=== PATIENT | female | born 1970 | race Caucasian/White ===

== ENCOUNTER 2016-09-18 06:34 | Emergency (ER) | END 2016-09-18 11:20 | disposition home or self-care (01) ==

== ENCOUNTER 2018-01-21 15:44 | Outpatient (CLI) | payer OTHER | END 2018-01-21 15:45 | disposition short-term general hospital (02) | LOC: EMS 15:44 | PROVIDERS: ATTEND Surgery | DX: R10.9 Unspecified abdominal pain (principal); R11.10 Vomiting, unspecified | CPT/HCPCS: A0425; A0427 ==

== ENCOUNTER 2018-01-29 18:23 | Outpatient (CLI) | payer OTHER | END 2018-01-29 18:24 | disposition critical access hospital (66) | LOC: EMS 18:23 | PROVIDERS: ATTEND Surgery | DX: M54.2 Cervicalgia (principal); M79.644 Pain in right finger(s); V43.92XA Unspecified car occupant injured in collision with other type car in traffic accident, initial encounter; Y92.414 Local residential or business street as the place of occurrence of the external cause | CPT/HCPCS: A0425; A0429 ==

== ENCOUNTER 2018-01-29 18:37 | Emergency (ER) | payer OTHER ==
[2018-01-29 18:47] VITALS: BP 153/97
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
== END 2018-01-29 19:03 | disposition home or self-care (01) ==
LOC: EDUNIT# → ED 18:37
DX: M54.2 Cervicalgia (principal); R03.0 Elevated blood-pressure reading, without diagnosis of hypertension; V89.2XXA Person injured in unspecified motor-vehicle accident, traffic, initial encounter
CPT/HCPCS: 99282; 99283